=== PATIENT | male | born 1975 | race Caucasian/White ===

== ENCOUNTER 2017-08-17 19:21 | Emergency (ER) | payer SELFPAY ==
[2017-08-17 20:11] VITALS: BP 152/94
--- NOTE | 2017-08-17 20:21 | ER Document Report ---
ED Medical Screen (RME) - General Chief Complaint: Chest Pain Stated Complaint: CHEST PAIN Time Seen by Provider: 08/17/17 20:14 Notes: Patient is having 3-5 minutes of left lateral chest pain today that radiates to his left arm. He denies any previous history of heart disease. Patient denies any family history. He denies any chronic medical conditions. Patient states she has not had any type of previous cardiac evaluation. He states he was having some nausea with the pain. But no shortness of breath. He denies any recent trauma. No cough cold or congestion. TRAVEL OUTSIDE OF THE [place] IN LAST 30 DAYS: No - Related Data Allergies/Adverse Reactions: Penicillins Allergy (Verified 09/14/14 01:49) Past Medical History - Social History Chew tobacco use (# tins/day): No Frequency of alcohol use: None Drug Abuse: None Renal/ Medical History: Denies: Hx Peritoneal Dialysis Past Surgical History: Reports: Hx Adenoidectomy, Hx Tonsillectomy - Immunizations Immunizations up to date: Yes Hx Diphtheria, Pertussis, Tetanus Vaccination: Yes Physical Exam - Vital signs Vitals: Temp Pulse Resp BP Pulse Ox 98.3 F 88 16 152/94 H 97 08/17/17 19:53 08/17/17 19:53 08/17/17 19:53 08/17/17 19:53 08/17/17 19:53 Course - Vital Signs Vital signs: Temp Pulse Resp BP Pulse Ox 98.3 F 88 16 152/94 H 97 08/17/17 19:53 08/17/17 19:53 08/17/17 19:53 08/17/17 19:53 08/17/17 19:53
[2017-08-17 20:48] LABS: ABSOLUTE BASOPHILS # (AUTO) 0.1 10^3/uL (0.0-0.2); ABSOLUTE EOSINOPHILS # (AUTO) 0.2 10^3/uL (0.0-0.6); ABSOLUTE MONOCYTES (AUTO) 0.6 10^3/uL (0.1-1.4); ABSOLUTE NEUT (AUTO) 7.9 10^3/uL (1.7-8.2); BASOPHILS % (AUTO) 0.9 % (0-2); EOSINOPHILS % (AUTO) 2.2 % (0-6); LYMPHOCYTES % (AUTO) 18.8 % (13-45); MEAN CORPUSCULAR HEMOGLOBIN 30.5 pg (27.0-33.4); MEAN CORPUSCULAR HGB CONC 34.6 g/dL (32.0-36.0); MEAN CORPUSCULAR VOLUME 88 fl (80-97); MONOCYTES % (AUTO) 5.3 % (3-13); RED BLOOD COUNT 5.23 10^6/uL (4.35-5.55); RED CELL DISTRIBUTION WIDTH 13.4 % (11.5-14.0); SEGMENTED NEUTROPHILS % (AUTO) 72.8 % (42-78); WHITE BLOOD COUNT 10.9 10^3/uL (4.0-10.5)
--- NOTE | 2017-08-17 20:59 | RADIOLOGY REPORT (SQ) ---
EXAM DESCRIPTION: CHEST PA/LAT COMPLETED DATE/TIME: 08/17/2017 8:33 pm REASON FOR STUDY: cp COMPARISON: None. EXAM PARAMETERS: NUMBER OF VIEWS: two views TECHNIQUE: Digital Frontal and Lateral radiographic views of the chest acquired. RADIATION DOSE: NA LIMITATIONS: none FINDINGS: LUNGS AND PLEURA: No opacities, masses or pneumothorax. No pleural effusion. The previous ly described calcified granuloma in the right lung appears stable. MEDIASTINUM AND HILAR STRUCTURES: No masses or contour abnormalities. HEART AND VASCULAR STRUCTURES: Heart normal size. No evidence for failure. BONES: No acute findings. HARDWARE: None in the chest. OTHER: No other significant finding. IMPRESSION: No significant interval change. No acute findings. Other findings as noted above TECHNICAL DOCUMENTATION: JOB ID: [id number] [employer]- All Rights Reserved
[2017-08-17 21:06] LABS: ALANINE AMINOTRANSFERASE 83 U/L (21-72); ALBUMIN 4.5 g/dL (3.5-5.0); ALKALINE PHOSPHATASE 124 U/L (38-126); ANION GAP 9 (5-19); ASPARTATE AMINO TRANSFERASE 41 U/L (17-59); BILIRUBIN,DIRECT 0.3 mg/dL (0.0-0.4); BILIRUBIN,TOTAL 0.4 mg/dL (0.2-1.3); BLOOD UREA NITROGEN 16 mg/dL (7-20); CALCIUM 9.4 mg/dL (8.4-10.2); CARBON DIOXIDE 27 mmol/L (22-30); CHLORIDE 104 mmol/L (98-107); CREATININE RESULT 1.17 mg/dL (0.52-1.25); GLUCOSE 98 mg/dL (75-110); POTASSIUM 4.7 mmol/L (3.6-5.0); SODIUM 140.3 mmol/L (137-145); TOTAL PROTEIN 6.7 g/dL (6.3-8.2)
[2017-08-17] MEDS ORDERED: IBUPROFEN 600 MG TABLET PO ONE (22:06)
--- NOTE | 2017-08-17 22:09 | ER Document Report ---
ED General - General Chief Complaint: Chest Pain Stated Complaint: CHEST PAIN Time Seen by Provider: 08/17/17 20:14 Notes: Patient is a 42-year-old male with a past medical history of tobacco abuse, obesity, who presents with intermittent left lower rib as well as left shoulder , left neck and left upper extremity pain. Patient states has been evaluated on multiple occasions for this and has not had any answers to this because of his pain. He states the symptoms are intermittent. Nothing triggers the pain except sometimes when he moves his neck toward the left. He notes that when the pain is present nothing seems to improve it. He does describe it as a severe, constant, shocking, burning pain that is most intense in his neck, shoulder, and left upper extremity. He denies any pain at time of my assessment. He has no history of DVT or pulmonary embolus. He has not followed up with a primary care physician regarding today's concerns. He has not had any shortness of breath, vomiting or diaphoresis. TRAVEL OUTSIDE OF THE [place] IN LAST 30 DAYS: No - Related Data Allergies/Adverse Reactions: Penicillins Allergy (Verified 09/14/14 01:49) Past Medical History - General Information source: Patient - Social History Smoking Status: Current Every Day Smoker Chew tobacco use (# tins/day): No Frequency of alcohol use: None Drug Abuse: None Lives with: Spouse/Significant other Family History: Hyperlipidemia, Malignancy - lung, Thyroid Disfunction, Other - chf, copd Patient has suicidal ideation: No Patient has homicidal ideation: No Renal/ Medical History: Denies: Hx Peritoneal Dialysis Past Surgical History: Reports: Hx Adenoidectomy, Hx Tonsillectomy - Immunizations Immunizations up to date: Yes Hx Diphtheria, Pertussis, Tetanus Vaccination: Yes Review of Systems - Review of Systems Notes: Constitutional: Negative for fever. HENT: Negative for sore throat. Eyes: Negative for visual changes. Cardiovascular: Positive or chest pain. Respiratory: Negative for shortness of breath. Gastrointestinal: Negative for abdominal pain, vomiting or diarrhea. Genitourinary: Negative for dysuria. Musculoskeletal: Positive for neck and left shoulder pain Skin: Negative for rash. Neurological: Negative for headaches, weakness or numbness. 10 point ROS negative except as marked above and in HPI. Physical Exam - Vital signs Vitals: Temp Pulse Resp BP Pulse Ox 98.3 F 88 16 152/94 H 97 11/28/17 19:53 08/17/17 19:53 08/17/17 19:53 08/17/17 19:53 08/17/17 19:53 Interpretation: Hypertensive Notes: PHYSICAL EXAMINATION: GENERAL: Well-appearing, well-nourished and in no acute distress. HEAD: Atraumatic, normocephalic. EYES: Pupils equal round and reactive to light, extraocular movements intact, sclera anicteric, conjunctiva are normal. ENT: nares patent, oropharynx clear without exudates. Moist mucous membranes. NECK: Normal range of motion, supple without lymphadenopathy LUNGS: Breath sounds clear to auscultation bilaterally and equal. No wheezes rales or rhonchi. HEART: Regular rate and rhythm without murmurs ABDOMEN: Soft, nontender, normoactive bowel sounds. No guarding, no rebound. No masses appreciated. EXTREMITIES: Normal range of motion, no pitting or edema. No cyanosis. NEUROLOGICAL: 5 out of 5 biceps and triceps strength bilaterally. RMU motor and sensory his fusion is intact bilaterally. Full cumulative effects analyst strength bilaterally. PSYCH: Normal mood, normal affect. SKIN: Warm, Dry, normal turgor, no rashes or lesions noted. Course - Re-evaluation Re-evalutation: 08/17/17 22:05 Presentation of chest pain in an otherwise well appearing patient. Low clinical suspicion for ACS given clinical history, exam, EKG without ST elevations or depressions, and negative initial troponin. HEART score less than or equal to 3. PE also seems unlikely given clinical history, absence of tachycardia or dyspnea. Patient is PERC criteria negative. CXR without evidence of pneumothorax or pneumonia. No widened mediastinum. Aortic dissection also seems unlikely given history, symmetric pulses, CXR, and vitals. Clinical history is actually most consistent with a cervical nerve root impingement on the left side. Patient has shooting, intermittent pain to the left upper extremity with associated shoulder and trapezius discomfort. RMU motor and sensory distribution is intact bilaterally. He has full 5 out of 5 biceps and triceps strength. I have encouraged him to follow-up as an outpatient for an MRI of the cervical spine and pursue physical therapy as well as conservative management. At this time will discharge with return precautions and follow-up recommendations. Verbal discharge instructions given a the bedside and opportunity for questions given. Medication warnings reviewed. Patient is in agreement with this plan and has verbalized understanding of return precautions and the need for primary care follow-up in the next 24-72 hours. - Vital Signs Vital signs: Temp Pulse Resp BP Pulse Ox 98.3 F 88 16 152/94 H 97 08/17/17 19:53 08/17/17 19:53 08/17/17 19:53 08/17/17 19:53 08/17/17 19:53 - Laboratory Result Diagrams: 08/17/17 20:24 08/17/17 20:24 Laboratory results interpreted by me: 08/17/17 08/17/17 20:24 20:24 WBC 10.9 H ALT 83 H - Diagnostic Test Radiology reviewed: Image reviewed, Reports reviewed Radiology results interpreted by me: 08/17/17 22:05 Chest x-ray: No acute infiltrate or pneumothorax - EKG Interpretation by Me Additional EKG results interpreted by me: 08/17/17 22:06 Normal sinus rhythm. Rate 84. No ST elevations or depressions. QTC is 421. Discharge - Discharge Clinical Impression: Cervical nerve root impingement, Chest wall discomfort Condition: Good Disposition: HOME, SELF-CARE Additional Instructions: Your symptoms are likely due to an irritation of one of your cervical nerve roots and this could be secondary to either a herniated disc or disc degeneration. Begin taking ibuprofen 600 mg every 6 hours for the next 1 week to try to reduce inflammation that could be causing irritation of your nerve. Please also apply heat to the area. Follow-up with a primary care physician for consideration of an MRI of your cervical spine to better evaluate. They may also recommend physical therapy or surgery depending upon the extent of what they find on MRI.
--- NOTE | 2017-08-18 08:16 | EKG REPORT ---
SEVERITY:- DEFECTIVE ECG - TECHNICALLY POOR TRACING - PLEASE REPEAT ECG! : Confirmed by: Estevan Dennison MD 18-Aug-2017 08:15:47
--- NOTE | 2017-08-18 13:21 | EKG REPORT ---
SEVERITY:- NORMAL ECG - SINUS RHYTHM : Confirmed by: Estevan Dennison MD 18-Aug-2017 13:21:32
== END 2017-08-18 | disposition home or self-care (01) ==
LOC: ER 19:21
DX: M54.12 Radiculopathy, cervical region (principal); R07.81 Pleurodynia; M79.602 Pain in left arm; E66.9 Obesity, unspecified; F17.200 Nicotine dependence, unspecified, uncomplicated; Z88.0 Allergy status to penicillin
CPT/HCPCS: 36415; 71020; 80053; 84484; 85025; 93005; 93010; 99285

== ENCOUNTER 2020-05-11 20:09 | Observation (INO) | payer SELFPAY ==
--- NOTE | 2020-05-11 20:51 | ER Document Report ---
ED Medical Screen (RME) - General Chief Complaint: Abdominal Pain Stated Complaint: ABDOMINAL PAIN Time Seen by Provider: 05/11/20 20:45 Mode of Arrival: Ambulatory Information source: Patient Notes: Patient is a 44-year-old male presenting to the emergency department chief complaint of severe abdominal pain. Patient reports he has a history of having an umbilical hernia, he states that last night the umbilical hernia became very hard and painful. He states the pain has persisted on through the day. He denies any nausea, vomiting, fever or chills. He does report diarrhea but states that is normal for him. There is a palpable mass at the umbilicus. I suspect he has an incarcerated hernia. Patient was taken straight to ultrasound. *Patient declines pain medications. I have greeted and performed a rapid initial assessment of this patient. A comprehensive ED assessment and evaluation of the patient, analysis of test results and completion of the medical decision making process will be conducted by additional ED providers. I have specifically instructed the patient or family members with the patient to immediately return to any nursing staff should anything change in the patient's condition or with their chief complaint. TRAVEL OUTSIDE OF THE [place] IN LAST 30 DAYS: No - Related Data Allergies/Adverse Reactions: Penicillins Allergy (Verified 09/14/14 01:49) Past Medical History Renal/ Medical History: Denies: Hx Peritoneal Dialysis Past Surgical History: Reports: Hx Adenoidectomy, Hx Tonsillectomy - Immunizations Immunizations up to date: Yes Hx Diphtheria, Pertussis, Tetanus Vaccination: Yes Physical Exam - Vital signs Vitals: Temp Pulse Resp BP Pulse Ox 98.6 F 84 20 146/87 H 96 05/11/20 20:28 05/11/20 20:28 05/11/20 20:28 05/11/20 20:28 05/11/20 20:28 Course - Vital Signs Vital signs: Temp Pulse Resp BP Pulse Ox 98.6 F 84 20 146/87 H 96 05/11/20 20:28 05/11/20 20:28 05/11/20 20:28 05/11/20 20:28 05/11/20 20:28
[2020-05-11] MEDS ORDERED: FENTANYL CITRATE INJ/PF 100 MCG/2 ML AMPUL IV ONE ×2 (21:09→21:33)
[2020-05-11] MEDS ORDERED: ONDANSETRON HCL INJ/PF 4 MG/2 ML SDV IV ONE (21:10)
--- NOTE | 2020-05-11 21:28 | ER Document Report ---
ED GI/ - General Chief Complaint: Abdominal Pain Stated Complaint: ABDOMINAL PAIN Time Seen by Provider: 05/11/20 20:45 Mode of Arrival: Ambulatory Notes: Patient is a 44-year-old male who comes emergency department for chief complaint of severe abdominal pain. Patient has a history of umbilical hernia and he states last night the hernia started become hard, painful, and the pain has significantly worsened throughout today. He reports nausea but denies vomiting. Denies fever. He states he had a loose bowel movement earlier today, nonbloody. He smokes, takes no daily prescribed occasions, no past medical hi story reported except tonsillectomy. TRAVEL OUTSIDE OF THE [place] IN LAST 30 DAYS: No - Related Data Allergies/Adverse Reactions: shellfish derived Allergy (Severe, Verified 05/12/20 01:50) Swelling of Throat Penicillins Allergy (Verified 09/14/14 01:49) Past Medical History - General Information source: Patient - Social History Smoking Status: Current Every Day Smoker Smoking Education Provided: Yes - <3 min Frequency of alcohol use: None Drug Abuse: None Lives with: Family Family History: Hyperlipidemia, Malignancy - lung, Thyroid Disfunction, Other - chf, copd Renal/ Medical History: Denies: Hx Peritoneal Dialysis Past Surgical History: Reports: Hx Adenoidectomy, Hx Tonsillectomy - Immunizations Immunizations up to date: Yes Hx Diphtheria, Pertussis, Tetanus Vaccination: Yes Review of Systems - Review of Systems Constitutional: No symptoms reported EENT: No symptoms reported Cardiovascular: No symptoms reported Respiratory: No symptoms reported Gastrointestinal: See HPI Genitourinary: No symptoms reported Male Genitourinary: No symptoms reported Musculoskeletal: No symptoms reported Skin: No symptoms reported Hematologic/Lymphatic: No symptoms reported Neurological/Psychological: No symptoms reported Physical Exam - Vital signs Vitals: Temp Pulse Resp BP Pulse Ox 98.6 F 84 20 146/87 H 96 05/11/20 20:28 05/11/20 20:28 05/11/20 20:28 05/11/20 20:28 05/11/20 20:28 - Notes Notes: GENERAL: Patient alert and interactive but appears to be in pain and obvious distress HEAD: Normocephalic, atraumatic. EYES: Pupils equal, round, and reactive to light. Extraocular movements intact. ENT: Oral mucosa moist, tongue midline. Oropharynx unremarkable. Airway patent. NECK: Full range of motion. Supple. Trachea midline. No lymphadenopathy. LUNGS: Clear to auscultation bilaterally, no wheezes, rales, or rhonchi. No r espiratory distress. Non-tender chest wall. HEART: Regular rate and rhythm. No murmur ABDOMEN: There is a slightly erythematous, swollen, tender umbilical hernia noted with very significant tenderness when palpating the direct area. Abdomen is otherwise benign. GENITOURINARY: No swelling, tenderness, or abnormal findings noted. Arely MENESES present at bedside. EXTREMITIES: Moves all 4 extremities spontaneously. No edema, normal radial and dorsalis pedis pulses bilaterally. No cyanosis. BACK: no cervical, thoracic, lumbar midline tenderness. No saddle anesthesia, normal distal neurovascular exam. Moves all extremities in full range of motion. NEUROLOGICAL: Alert and oriented x3. Normal speech. Cranial nerves II through XII grossly intact. Strength 5/5 in all extremities. PSYCH: Normal affect, normal mood. SKIN: Warm, dry, normal turgor. No rashes or lesions noted. Course - Re-evaluation Re-evalutation: Patient with firm, very tender umbilical hernia which appears concerning for incarceration. Patient given fentanyl and Zofran, placed in Trendelenburg, attempted to reduce this but was unsuccessful. Laboratory work-up pending, on- call surgeon will be contacted immediately. 05/11/20 21:28 Called and spoke with Dr. Ryder, general surgeon, he states he will come evaluate the patient. Dr. Ryder unable to reduce the hernia. Ultrasound shows probable bowel in the hernia. Patient will need COVID-19 testing, he recommends CT of the abdomen pelvis with IV contrast for this is pending. Dr. Ryder called me, he had reviewed the CAT scan, he states there does not appear to be bowel and patient will be operated on this morning but is not going to the OR immediately. This was discussed with patient. Patient states appreciation and agreement. Patient accepted to the hospital under Dr. Ryder's service. - Vital Signs Vital signs: Temp Pulse Resp BP Pulse Ox 98.0 F 72 16 135/80 H 100 05/12/20 01:34 05/12/20 02:00 05/12/20 01:34 05/12/20 01:34 05/12/20 01:34 - Laboratory Result Diagrams: 05/11/20 21:10 05/11/20 21:10 Laboratory results interpreted by me: 05/11/20 21:10 WBC 12.0 H Discharge - Discharge Clinical Impression: Umbilical hernia, incarcerated Abdominal pain Qualifiers: Abdominal location: periumbilical Qualified Code(s): R10.33 - Periumbilical pain Condition: Stable Disposition: ADMITTED OBSERVATION Admitting Provider: Surgicalist Unit Admitted: Surgical Floor
--- NOTE | 2020-05-11 21:43 | RADIOLOGY REPORT (SQ) ---
EXAM DESCRIPTION: US ABDOMEN DOPPLER LIMITED COMPLETED DATE/TME: 05/11/2020 20:49 CLINICAL HISTORY: 44 years, Male, EVAL FOR INCARCERATED HERNIA COMPARISON: None. TECHNIQUE: Limited ultrasound of the patient's clinical/palpable abnormality of the anterior abdomen. LIMITATIONS: None. FINDINGS: There appears to be an anterior abdominal wall skin defect containing loops of bowel and fluid. Correlate with physical exam findings. IMPRESSION: Findings likely representing anterior abdominal wall hernia containing bowel. Correlate with physical exam copyright 2010 [employer]- All Rights Reserved
[2020-05-11 21:46] LABS: ABSOLUTE BASOPHILS # (AUTO) 0.1 10^3/uL (0.0-0.2); ABSOLUTE EOSINOPHILS # (AUTO) 0.5 10^3/uL (0.0-0.6); ABSOLUTE LYMPHOCYTES (AUTO) 3.1 10^3/uL (0.5-4.7); ABSOLUTE MONOCYTES (AUTO) 0.8 10^3/uL (0.1-1.4); ABSOLUTE NEUT (AUTO) 7.5 10^3/uL (1.7-8.2); BASOPHILS % (AUTO) 0.8 % (0-2); EOSINOPHILS % (AUTO) 4.3 % (0-6); HEMOGLOBIN 15.9 g/dL (13.5-17.0); LYMPHOCYTES % (AUTO) 25.6 % (13-45); MEAN CORPUSCULAR HGB CONC 33.8 g/dL (32.0-36.0); MEAN CORPUSCULAR VOLUME 89 fl (80-97); MONOCYTES % (AUTO) 6.4 % (3-13); PLATELET COUNT 205 10^3/uL (150-450); RED BLOOD COUNT 5.29 10^6/uL (4.35-5.55); RED CELL DISTRIBUTION WIDTH 13.4 % (11.5-14.0); SEGMENTED NEUTROPHILS % (AUTO) 62.9 % (42-78); TOTAL CELLS COUNTED % (AUTO) 100 %
[2020-05-11] MEDS ORDERED: NORMAL SALINE 1000 ML 1,000 ML IV ONE (21:48)
[2020-05-11 22:05] LABS: ALBUMIN 4.2 g/dL (3.5-5.0); ALKALINE PHOSPHATASE 108 U/L (38-126); ANION GAP 7 (5-19); ASPARTATE AMINO TRANSFERASE 32 U/L (17-59); BILIRUBIN,TOTAL 0.3 mg/dL (0.2-1.3); BLOOD UREA NITROGEN 17 mg/dL (7-20); CALCIUM 9.4 mg/dL (8.4-10.2); CARBON DIOXIDE 27 mmol/L (22-30); CHLORIDE 105 mmol/L (98-107); GLUCOSE 91 mg/dL (75-110); POTASSIUM 4.2 mmol/L (3.6-5.0); TOTAL PROTEIN 6.7 g/dL (6.3-8.2)
[2020-05-11] MEDS ORDERED: MORPHINE SULFATE 10 MG/ML INJ IV ONE (22:44)
[2020-05-11 22:51] LABS: APPEARANCE,URINE CLEAR; BILIRUBIN,URINE NEGATIVE (NEGATIVE); COLOR,URINE YELLOW; GLUCOSE, URINE NEGATIVE (NEGATIVE); KETONES,URINE NEGATIVE (NEGATIVE); LEUKOCYTE ESTERASE,URINE NEGATIVE (NEGATIVE); NITRITE,URINE NEGATIVE (NEGATIVE); PROTEIN,URINE NEGATIVE (NEGATIVE); URINE SPECIFIC GRAVITY 1.023; UROBILINOGEN,URINE NEGATIVE mg/dL (<2.0)
--- NOTE | 2020-05-11 23:25 | RADIOLOGY REPORT (SQ) ---
EXAM DESCRIPTION: CT abdomen and pelvis with contrast CLINICAL HISTORY: 44 years Male, severe abd pain, eval hernia COMPARISON: None. TECHNIQUE: Axial images of the abdomen and pelvis were performed utilizing intravenous contrast, with sagittal and coronal reformatted images. This exam was performed according to our departmental dose-optimization program which includes use of Automated Exposure Control, adjustment of the mA and/or kV according to patient size and/or use of iterative reconstruction technique. FINDINGS: There is an umbilical hernia containing only fat. There is inflammation/edema involving the fat in the hernia, as well as the contiguous intra-abdominal fat. There may also be a small amount of fluid within the hernia. Findings are suspicious for hernia incarceration/strangulation. There is no evidence of bowel within the umbilical hernia. There is a small right inguinal hernia containing fat. There is diverticulosis without diverticulitis. The appendix appears normal. No evidence of bowel obstruction. There is no significant radiographic abnormality of the liver, spleen, pancreas, adrenal glands or kidneys. No free air or free fluid. IMPRESSION: Umbilical hernia, with findings suspicious for hernia incarceration/strangulation. I have discussed these findings by telephone with Dr. Rahul Irene. Other findings as described.
[2020-05-11] MEDS ORDERED: ONDANSETRON HCL INJ/PF 4 MG/2 ML SDV IV PRN (23:29)
[2020-05-11] MEDS ORDERED: NORMAL SALINE 1000 ML 1,000 ML IV PRN (23:29)
--- NOTE | 2020-05-11 23:29 | PDOC H&P ---
History of Present Illness Patient complains of: Umbilical bulge with pain History of Present Illness: DANG SALCIDO is a 44 year old male, obese, healthy, on no medications, with a several year history of bulging umbilicus which has become more painful starting tonight about 6:00. He denies nausea vomiting, change of bowel habits, and has had a normal bowel movement today. Past Surgical History Past Surgical History: Reports: Tonsillectomy Social History Smoking Status: Current Every Day Smoker Family History Family History: Hyperlipidemia, Malignancy - lung, Thyroid Disfunction, Other - chf, copd Parental Family History Reviewed: Yes - see above Children Family History Reviewed: No Sibling(s) Family History Reviewed.: No Medication/Allergy Home Medications: No Home Medications 09/14/14 Allergies/Adverse Reactions: Penicillins Allergy (Verified 09/14/14 01:49) Physical Exam Vital Signs: Temp Pulse Resp BP Pulse Ox 98.6 F 84 20 146/87 H 96 05/11/20 21:28 05/11/20 20:28 05/11/20 20:28 05/11/20 20:28 05/11/20 20:28 Intake & Output 05/10/20 05/11/20 05/12/20 06:59 06:59 06:59 Weight 107.501 kg General appearance: PRESENT: no acute distress, obese, well-developed, well- nourished Head exam: PRESENT: atraumatic Eye exam: PRESENT: EOMI Mouth exam: PRESENT: moist, neck supple Neck exam: PRESENT: full ROM Respiratory exam: PRESENT: clear to auscultation ruthie Cardiovascular exam: PRESENT: RRR GI/Abdominal exam: PRESENT: normal bowel sounds, tenderness - Umbilical mass soft but exquisitely tender without skin changes, other - Obese Rectal exam: PRESENT: deferred Gentrourinary exam: PRESENT: other Extremities exam: PRESENT: full ROM Neurological exam: PRESENT: alert, altered Psychiatric exam: PRESENT: appropriate affect Skin exam: PRESENT: warm Results Laboratory Results: 05/11/20 21:10 05/11/20 21:10 WBC 12.0 H RBC 5.29 Hgb 15.9 Hct 47.0 MCV 89 MCH 30.0 MCHC 33.8 RDW 13.4 Plt Count 205 Seg Neutrophils % 62.9 Impressions: Abdomen Ultrasound 05/11/20 20:49 IMPRESSION: Findings likely representing anterior abdominal wall hernia containing bowel. Correlate with physical exam copyright 2010 [employer]- All Rights Reserved Assessment & Plan - Diagnosis (1) Umbilical hernia, incarcerated Is this a current diagnosis for this admission?: Yes - Time Anticipated Discharge Disposition: Home, Self Care Anticipated Discharge Timeframe: within 24 hours - Plan Summary Plan Summary: Assessment: Healthy 44-year-old male with painful incarcerated umbilical hernia Slight leukocytosis 13,000 Ultrasound abdominal wall reveals an incarcerated umbilical hernia containing bowel CT scan abdomen pelvis demonstrates intraperitoneal fat only within the hernia sac Plan: Admit patient N.p.o. after midnight IV fluids Perioperative IV antibiotics Plan open umbilical hernia repair with mesh in the morning Possible discharge following the surgery in the morning
[2020-05-11] MEDS ORDERED: FAMOTIDINE INJ/PF 20 MG/2 ML SDV IV SCH (23:30)
[2020-05-11] MEDS ORDERED: CLINDAMYCIN 900 MG/D5W RTU 900 MG/50 ML RTUPB IV PRN (23:34)
[2020-05-12] MEDS ORDERED: FENTANYL CITRATE INJ/PF 100 MCG/2 ML AMPUL ONE (08:36)
[2020-05-12] MEDS ORDERED: MIDAZOLAM 2 MG/2 ML INJ ONE (08:36)
[2020-05-12] MEDS ORDERED: DEXAMETHASONE SOD PHOSPHATE INJ 4 MG/1 ML VIAL ONE (08:36)
[2020-05-12] MEDS ORDERED: LIDOCAINE 2% INJ-PF (20 MG/ML) 10 ML AMPUL ONE (08:36)
[2020-05-12] MEDS ORDERED: PROPOFOL INJ 200 MG/20 ML VIAL IV ONE (08:36)
[2020-05-12] MEDS ORDERED: ONDANSETRON HCL INJ/PF 4 MG/2 ML SDV ONE (08:36)
[2020-05-12] MEDS ORDERED: HYDROMORPHONE HCL INJ/PF 2 MG/ML AMPULE ONE (08:36)
[2020-05-12] MEDS ORDERED: LIDOCAINE 1% INJ-PF (10 MG/ML) 30 ML SDV ONE (08:53)
[2020-05-12] MEDS ORDERED: ONDANSETRON HCL INJ/PF 4 MG/2 ML SDV IV PRN (10:09)
[2020-05-12] MEDS ORDERED: MORPHINE SULFATE 10 MG/ML INJ IV PRN (10:09)
--- NOTE | 2020-05-12 10:09 | Operative Report ---
Operative Report DATE OF SURGERY: 05/12/20 PREOPERATIVE DIAGNOSIS: Incarcerated umbilical hernia POSTOPERATIVE DIAGNOSIS: Same, containing fatty tissue OPERATION: Open umbilical herniorrhaphy with Ventralex mesh SURGEON: YANET HARPER ANESTHESIA: GA - +20 mL of half percent Marcaine without epinephrine TISSUE REMOVED OR ALTERED: Not applicable COMPLICATIONS: None ESTIMATED BLOOD LOSS: Negligible INTRAOPERATIVE FINDINGS: Incarcerated umbilical hernia containing fatty tissue PROCEDURE: The procedure was done in the operating room, the patient was placed in supine position, general anesthesia induced by endotracheal intubation, the abdomen was prepped and draped in the usual fashion. Following this, the skin of the umbilicus was infiltrated with approximately 20 mL of 0.5% Marcaine without epinephrine. A smile incision was made just below the umbilicus. The skin of the umbilicus was then elevated off the umbilical hernia sac and the surrounding tissues. When this was accomplished, the umbilical skin was trimmed to size, the sac was circumferentially dissected down to the midline fascial defect. The fascial defect was then entered with a hemostat and circumferentially dissected, made larger with Metzenbaum scissors. The hernia sac was gently pushed into the preperitoneal space. A finger was inserted into the defect and turned circumferentially in a sweeping motion to prepare a space within the preperitoneum. When this was accomplished, the Ventrallex mesh was inserted through the defect into the peritoneal space and deployed, pulled upward through the string; interrupted 2-0 Prolene sutures were placed to approximate the fascial defect edges while incorporating the mesh tail. The tail was amputated with scissors. The sutures were sequentially tied with approximation of the edges of the fascial defect. Additional 0 Prolene sutures were placed to approximate the anterior rectus sheath. The incision was irrigated with normal saline, deep inverted 2-0 Vicryl sutures were placed for approximating of the subcutaneous tissue with good cosmetic appearance of the wound. 4-0 PDS running subcuticular suture was used to approximate the skin edges. Dermabond was applied followed by 2 x 2's and Tegaderm, 4 x 4's where placed on top of it followed by foam tape. The patient tolerated procedure well, extubated, and transferred to recovery room in satisfactory conditions
[2020-05-12] MEDS ORDERED: HYDROCODONE/ACETAMINOPHEN 5-325 MG TABLET PO ONE ×2 (10:13→14:00)
[2020-05-12] MEDS ORDERED: ACETAMINOPHEN 1,000 MG/100 ML RTUPB IV ONE (10:24)
[2020-05-12] MEDS ORDERED: MORPHINE SULFATE 10 MG/ML INJ ONE (10:24)
--- NOTE | 2020-05-12 10:35 | PDOC DISCHARGE SUMMARY ---
General - Admit/Disc Date/PCP Admission Date/Primary Care Provider: 05/12/20 00:04 Discharge Date: 05/12/20 - Discharge Diagnosis Final Diagnosis: Sedated umbilical hernia - Assessment Summary: The patient is a healthy 44-year-old male who presents to the emergency room with painful bulge of the umbilicus, this was recognizes umbilical hernia incarcerated, CAT scan was done revealing fatty tissue only within the sac. The patient was admitted overnight on May 11, 2020, taken to surgery the following day for elective open umbilical herniorrhaphy with mesh, the procedure was uneventful, the patient was transferred to the recovery room and later the floor and discharged from the hospital to home on the same day May 12, 2020. - Additional Information Resuscitation Status: Full Code Discharge Diet: Regular Discharge Activity: No Lifting Over 10 Pounds - For 4 weeks, No tub bath - For 2 weeks, Other - Shower allowed starting May 14, 2020, remove tape and sponges, leave clear dressing over the wound and shower. Water can run over clear dressings. Home Medications: No Home Medications 09/14/14 Additional Information: Follow-up with surgical office in 2 weeks Remove foam tape and bandages on May 14, leave clear dressings in place, can shower afterward, water can run over clear dressings No heavy lifting or straining for about 4 weeks Return to work in 4 weeks Avoid constipation with milk of magnesia, prune juice, fibers, oral fluids Tylenol 500 mg by mouth every 6 hours Naproxen 1 tablet by mouth twice a day Ice pack to the umbilical area 30 minutes on and off as needed for pain Avoid heartburn by taking [id number] antacids such as Tagamet, Pepcid, or omeprazole History of Present Illiness History of Present Illness: DANG SALCIDO is a 44 year old male, obese, healthy, on no medications, with a several year history of bulging umbilicus which has become more painful starting tonight about 6:00. He denies nausea vomiting, change of bowel habits, and has had a normal bowel movement today. Physical Exam Vital Signs: Temp Pulse Resp BP Pulse Ox 98 F 70 16 131/78 H 99 05/12/20 08:05 05/12/20 08:05 05/12/20 08:05 05/12/20 08:05 05/12/20 08:05 Intake & Output 05/11/20 05/12/20 05/13/20 06:59 06:59 06:59 Intake Total 1000 800 Output Total 10 Balance 1000 790 Weight 108.6 kg Results Laboratory Results: WBC 12.0 10^3/uL (4.0-10.5) H 05/11/20 21:10 RBC 5.29 10^6/uL (4.35-5.55) 05/11/20 21:10 Hgb 15.9 g/dL (13.5-17.0) 05/11/20 21:10 Hct 47.0 % (37.9-51.0) 05/11/20 21:10 MCV 89 fl (80-97) 05/11/20 21:10 MCH 30.0 pg (27.0-33.4) 05/11/20 21:10 MCHC 33.8 g/dL (32.0-36.0) 05/11/20 21:10 RDW 13.4 % (11.5-14.0) 05/11/20 21:10 Plt Count 205 10^3/uL (150-450) 05/11/20 21:10 Lymph % (Auto) 25.6 % (13-45) 05/11/20 21:10 [place] % (Auto) 6.4 % (3-13) 05/11/20 21:10 Eos % (Auto) 4.3 % (0-6) 05/11/20 21:10 Baso % (Auto) 0.8 % (0-2) 05/11/20 21:10 Absolute Neuts (auto) 7.5 10^3/uL (1.7-8.2) 05/11/20 21:10 Absolute Lymphs (auto) 3.1 10^3/uL (0.5-4.7) 05/11/20 21:10 Absolute Monos (auto) 0.8 10^3/uL (0.1-1.4) 05/11/20 21:10 Absolute Eos (auto) 0.5 10^3/uL (0.0-0.6) 05/11/20 21:10 Absolute Basos (auto) 0.1 10^3/uL (0.0-0.2) 05/11/20 21:10 Seg Neutrophils % 62.9 % (42-78) 05/11/20 21:10 Sodium 139.0 mmol/L (137-145) 05/11/20 21:10 Potassium 4.2 mmol/L (3.6-5.0) 05/11/20 21:10 Chloride 105 mmol/L (98-107) 05/11/20 21:10 Carbon Dioxide 27 mmol/L (22-30) 05/11/20 21:10 Anion Gap 7 (5-19) 05/11/20 21:10 BUN 17 mg/dL (7-20) 05/11/20 21:10 Creatinine 1.14 mg/dL (0.52-1.25) 05/11/20 21:10 Est GFR ( Amer) > 60 (>60) 05/11/20 21:10 Est GFR (MDRD) Non-Af > 60 (>60) 05/11/20 21:10 Glucose 91 mg/dL (75-110) 05/11/20 21:10 POC Glucose 110 mg/dL (70-110) 05/12/20 05:22 Lactic Acid 0.7 mmol/L (0.7-2.1) 05/11/20 21:10 Calcium 9.4 mg/dL (8.4-10.2) 05/11/20 21:10 Total Bilirubin 0.3 mg/dL (0.2-1.3) 05/11/20 21:10 Direct Bilirubin 0.0 mg/dL (0.0-0.4) 05/11/20 21:10 Neonat Total Bilirubin Not Reportable 05/11/20 21:10 Neonat Direct Bilirubin Not Reportable 05/11/20 21:10 Neonat Indirect Bili Not Reportable 05/11/20 21:10 AST 32 U/L (17-59) 05/11/20 21:10 ALT 44 U/L (<50) 05/11/20 21:10 Alkaline Phosphatase 108 U/L (38-126) 05/11/20 21:10 Total Protein 6.7 g/dL (6.3-8.2) 05/11/20 21:10 Albumin 4.2 g/dL (3.5-5.0) 05/11/20 21:10 Lipase 88.0 U/L (23-300) 05/11/20 21:10 Urine Color YELLOW 05/11/20 22:32 Urine Appearance CLEAR 05/11/20 22:32 Urine pH 6.0 (5.0-9.0) 05/11/20 22:32 Ur Specific [place] 1.023 05/11/20 22:32 Urine Protein NEGATIVE mg/dL (NEGATIVE) 05/11/20 22:32 Urine Glucose (UA) NEGATIVE mg/dL (NEGATIVE) 05/11/20 22:32 Urine Ketones NEGATIVE mg/dL (NEGATIVE) 05/11/20 22:32 Urine Blood NEGATIVE (NEGATIVE) 05/11/20 22:32 Urine Nitrite NEGATIVE (NEGATIVE) 05/11/20 22:32 Urine Bilirubin NEGATIVE (NEGATIVE) 05/11/20 22:32 Urine Urobilinogen NEGATIVE mg/dL (<2.0) 05/11/20 22:32 Ur Leukocyte Esterase NEGATIVE (NEGATIVE) 05/11/20 22:32 Urine WBC (Auto) 1 /HPF 05/11/20 22:32 Urine RBC (Auto) 2 /HPF 05/11/20 22:32 Squamous Epi Cells Auto <1 /HPF 05/11/20 22:32 Urine Mucus (Auto) RARE /LPF 05/11/20 22:32 Urine Ascorbic Acid NEGATIVE (NEGATIVE) 05/11/20 22:32 SARS-CoV-2 (PCR) NEGATIVE (NEGATIVE) 05/11/20 22:03 Impressions: Abdomen Ultrasound 05/11/20 20:49 IMPRESSION: Findings likely representing anterior abdominal wall hernia containing bowel. Correlate with physical exam copyright 2011 [employer] All Rights Reserved Abdomen/Pelvis CT 05/11/20 22:00 IMPRESSION: Umbilical hernia, with findings suspicious for hernia incarceration/strangulation. I have discussed these findings by telephone with Dr. Rahul Irene. Other findings as described.
[2020-05-12] MEDS ORDERED: ACETAMINOPHEN 1,000 MG/100 ML RTUPB IV PRN (10:45)
[2020-05-12 13:13] VITALS: BP 122/88
[2020-05-12] MEDS ORDERED: GLYCOPYRROLATE 1 MG/5 ML VIAL ONE (14:33)
[2020-05-12] MEDS ORDERED: NEOSTIGMINE METHYLSULFATE 10 MG/10 ML VIAL ONE (14:33)
== END 2020-05-12 14:20 | disposition home or self-care (01) ==
LOC: ER 20:09 → EH 05-12 00:04 → 3S 05-12 01:26
PROVIDERS: ATTEND Surgery
DX: K42.0 Umbilical hernia with obstruction, without gangrene (principal); E66.9 Obesity, unspecified; F17.200 Nicotine dependence, unspecified, uncomplicated; Z03.818 Encounter for observation for suspected exposure to other biological agents ruled out; Z68.34 Body mass index [BMI] 34.0-34.9, adult
CPT/HCPCS: 49587; 99285; 96361; 96374; 96375; 36415 ×2; 87040; 82962; 83605; 83690; 85025; 87635; 80053; 81001; 76705; 93976; 74177; 00830; G0378 ×2; C1781; J2250; J1100; J3010 ×2; J3490 ×3; J2270; J2710; J1170; J2405 ×2; J7030 ×2; J2704; S0028; J0131; C9803; 830

== ENCOUNTER 2020-05-22 02:24 | Emergency (ER) | payer SELFPAY ==
[2020-05-22 02:42] VITALS: BP 148/90
[2020-05-22 03:28] LABS: ABSOLUTE BASOPHILS # (AUTO) 0.1 10^3/uL (0.0-0.2); ABSOLUTE EOSINOPHILS # (AUTO) 0.4 10^3/uL (0.0-0.6); ABSOLUTE LYMPHOCYTES (AUTO) 1.9 10^3/uL (0.5-4.7); BASOPHILS % (AUTO) 0.8 % (0-2); EOSINOPHILS % (AUTO) 3.9 % (0-6); HEMATOCRIT 45.3 % (37.9-51.0); HEMOGLOBIN 15.4 g/dL (13.5-17.0); LYMPHOCYTES % (AUTO) 16.6 % (13-45); MEAN CORPUSCULAR HEMOGLOBIN 29.9 pg (27.0-33.4); MEAN CORPUSCULAR VOLUME 88 fl (80-97); PLATELET COUNT 235 10^3/uL (150-450); RED BLOOD COUNT 5.15 10^6/uL (4.35-5.55); RED CELL DISTRIBUTION WIDTH 13.1 % (11.5-14.0); SEGMENTED NEUTROPHILS % (AUTO) 69.7 % (42-78); TOTAL CELLS COUNTED % (AUTO) 100 %; WHITE BLOOD COUNT 11.4 10^3/uL (4.0-10.5)
[2020-05-22 03:49] LABS: ALBUMIN 4.1 g/dL (3.5-5.0); ALKALINE PHOSPHATASE 140 U/L (38-126); ANION GAP 8 (5-19); ASPARTATE AMINO TRANSFERASE 36 U/L (17-59); BILIRUBIN,DIRECT 0.3 mg/dL (0.0-0.4); BILIRUBIN,TOTAL 0.4 mg/dL (0.2-1.3); BLOOD UREA NITROGEN 20 mg/dL (7-20); CALCIUM 9.7 mg/dL (8.4-10.2); CARBON DIOXIDE 25 mmol/L (22-30); CHLORIDE 106 mmol/L (98-107); CREATINE KINASE 99 U/L (55-170); GLUCOSE 98 mg/dL (75-110); POTASSIUM 4.4 mmol/L (3.6-5.0); TOTAL PROTEIN 6.4 g/dL (6.3-8.2)
[2020-05-22 04:03] LABS: TROPONIN I < 0.012 ng/mL
--- NOTE | 2020-05-22 07:46 | EKG REPORT ---
SEVERITY:- NORMAL ECG - SINUS RHYTHM : Confirmed by: Estevan Dennison MD 22-May-2020 07:46:16
== END 2020-05-22 07:00 | disposition left against medical advice (07) ==
LOC: ER 02:24
DX: Z53.21 Procedure and treatment not carried out due to patient leaving prior to being seen by health care provider (principal); R07.9 Chest pain, unspecified
CPT/HCPCS: 36415; 80053; 82550; 82553; 84484; 85025; 93005; 93010